=== PATIENT | male | born 1980 | race Caucasian/White ===

== ENCOUNTER 2022-07-22 04:40 | Emergency (ER) | payer SELFPAY ==
--- NOTE | 2022-07-22 05:45 | NUR ---
CALLED TO TRIAGE BUT NOT IN WAITING ROOM
--- NOTE | 2022-07-22 06:05 | NUR ---
CALLED PT TO TRIAGE, NOT AROUND IN WAITING AREA
--- NOTE | 2022-07-22 06:20 | NUR ---
PT LEFT WITHOUT BEING TRIAGE
== END 2022-07-22 06:52 | disposition left against medical advice (07) ==
LOC: ER 04:49
DX: Z53.21 Procedure and treatment not carried out due to patient leaving prior to being seen by health care provider (principal)